=== PATIENT | male | born 1990 | race African-American/Black ===

== ENCOUNTER 2019-06-16 10:55 | Day surgery (SDC) | payer OTHER ==
[2019-06-16] MEDS ORDERED: IOHEXOL 350 MG/ML 100ML IJ ONE ×2 (13:10→13:31)
[2019-06-16] MEDS ORDERED: LIDOCAINE 2%HCL (LOCAL ANESTH.) INJ 20ML MDV ONE (13:10)
[2019-06-16] MEDS ORDERED: SODIUM CHL 0.9% 0 ML ONE (13:30)
[2019-06-16] MEDS ORDERED: MIDAZOLAM HCL 1MG/1ML-2 ML VIAL ONE (13:30)
[2019-06-16] MEDS ORDERED: fentaNYL CITRATE 100 MCG/2 ML VL ONE (13:30)
[2019-06-16] MEDS ORDERED: ANGIOMAX 250 MG VIAL IV ONE (13:30)
[2019-06-16] MEDS ORDERED: HEPARIN SODIUM (PORCINE) 5000 UNITS/ML 1ML VIAL ONE (13:34)
[2019-06-16] MEDS ORDERED: VERAPAMIL 2.5MG/ML INJ 2ML VIAL IV ONE (13:35)
[2019-06-16] MEDS ORDERED: ONDANSETRON HCL 4 MG/2 ML VIAL IV PRN (14:45)
[2019-06-16] MEDS ORDERED: ACETAMINOPHEN 500 MG TAB PO PRN (14:45)
[2019-06-16] MEDS ORDERED: HYDROcodone-ACET 5/325MG TAB PO PRN (14:45)
[2019-06-16] MEDS ORDERED: SODIUM CHL 0.9% 500 ML IV ONE (14:45)
== END 2019-06-16 16:05 | disposition home or self-care (01) ==
LOC: CATH 10:55
PROVIDERS: ATTEND Internal Medicine Cardiovascular Disease
DX: R94.39 Abnormal result of other cardiovascular function study (principal); F17.210 Nicotine dependence, cigarettes, uncomplicated; Z98.890 Other specified postprocedural states
CPT/HCPCS: 93458; C1887; J1644; J2250; J3010; Q9967; 99152; 99153